=== PATIENT | female | born 1990 | race Caucasian/White ===

== ENCOUNTER 2016-04-05 16:28 | Emergency (ER) | payer OTHER ==
[~2016-04-05] VITALS: Ht 165.1 cm; Wt 64.0 kg
[~2016-04-05 16:28] MED LIST: ALBU8I INH; BENZ1CAP34 PO; ZITH250T PO
[2016-04-05 16:31] VITALS: BP 98/55; PULSE 66; RESP 16; TEMP 98.8; O2SAT 100
[2016-04-05] MEDS ORDERED: BC IMPLANT (18:31)
[2016-04-05 18:54] VITALS: BP 99/50; PULSE 72; RESP 16; O2SAT 98
--- NOTE | 2016-04-05 18:57 | PD ---
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 She has had some mild pelvic cramping. Denies any fevers, nausea, vomiting, or any other symptoms. She is sexually active but has not had any new partners. Modifying Factors: None Associated Signs & Symptoms: Brownish vaginal discharge, irregular vaginal bleeding Risk Factors: None PFSH Past Medical History Hx Anticoagulant Therapy: No Cancer: No Cardiovascular Problems: No Diminished Hearing: No Endocrine: No Gastrointestinal Disorders: No GERD: No Genitourinary: No Hiatal Hernia: No Immune Disorder: No Implanted Vascular Access Dvce: No Musculoskeletal: No Neurologic: No Psychiatric: No Reproductive: No Respiratory: No Immunizations Current: Yes Ulcer: No Influenza Vaccination: No ?: Unknown : 4 Para: 1 Miscarriage: 1 : 2 Past Surgical History AICD: No Arteriovenous Shunt: No Insulin Pump: No Joint Replacement: No Pacemaker: No Other Surgery: No Social History Alcohol Use: Yes Tobacco Use: Yes (half pack per day) Substance Use: Yes (marijuana) Allergies-Medications (Allergen,Severity, Reaction): Coded Allergies: No Known Allergies (Unverified , 04/05/16) Reported Meds & Prescriptions Reported Meds & Active Scripts Active Reported [Bc Implant] Review of Systems Except as stated in HPI: all other systems reviewed are Neg Physical Exam Narrative GENERAL: Well-nourished, well-developed young white female patient in no acute distress. SKIN: Warm and dry. HEAD: Normocephalic. EYES: No scleral icterus. No injection or drainage. NECK: Supple, trachea midline. CARDIOVASCULAR: Regular rate and rhythm without murmurs, gallops, or rubs. RESPIRATORY: Breath sounds equal bilaterally. No accessory muscle use. GASTROINTESTINAL: Abdomen soft, non-tender, nondistended. GENITOURINARY: Normal external genitalia without lesions or erythema. Vaginal vault brownish blood and small amount of cottage cheeselike whitish drainage. Cervical os was closed without drainage. No cervical motion tenderness. Uterus nontender and nonenlarged. Bilateral adnexa nontender without masses. MUSCULOSKELETAL: No cyanosis, or edema. BACK: Nontender without obvious deformity. No CVA tenderness. Data Data Last Documented VS Vital Signs Date Time Temp Pulse Resp B/P Pulse Ox O2 Delivery O2 Flow Rate FiO2 04/05/16 18:54 72 16 99/50 98 Room Air 04/05/16 16:31 98.8 Orders Gc And Chlamydia Pcr (04/05/16 18:31) Wet Prep Profile (04/05/16 18:31) Urinalysis - C+S If Indicated (04/05/16 18:31) Ed Urine Pregnancytest Poc (04/05/16 18:31) Labs Laboratory Tests Test 04/05/16 18:30 Clue Cells (Wet Prep) NONE SEEN Vaginal Trichomonas (Wet Prep) NONE SEEN Vaginal Yeast (Wet Prep) NONE SEEN MDM Medical Decision Making Medical Screen Exam Complete: Yes Emergency Medical Condition: Yes Medical Record Reviewed: Yes Differential Diagnosis Vaginal discharge, vaginal bleedingdysfunctional uterine bleeding versus breakthrough bleeding on control versus threatened AB versus ectopic versus vaginitis versus cervicitis Narrative Course Pelvic exam shows brownish discharge. She is not . Wet prep is negative. At this point, I would treat her empirically for vaginitis. UA is pending. Physician Communication Physician Communication Case is signed out to oncoming physician awaiting a UA. If negative, patient can be released. Diagnosis Primary Impression: Vaginal discharge Med/Other Pt SpecificInfo: Prescription(s) given Scripts Metronidazole (Flagyl)500 Mg Aoi134 Mg PO BID 7 Days Ref 0 Prov:Cisco Quintana MD 04/05/16 Disposition: 01 DISCHARGE HOME Condition: Stable Cisco Quintana MD Apr 05, 2016 18:57
[2016-04-05 19:00] LABS: BLOOD, URINE NEG (NEG); GLUCOSE,URINE NEG (NEG); KETONE, URINE NEG (NEG); NITRITE,URINE NEG (NEG)
[2016-04-05] MEDS ORDERED: METR-1 PO (19:07)
[2016-04-05 19:11] LABS: METHOD OF COLLECTION VOIDED; URINE COLOR YELLOW (YELLW/STRAW)
[2016-04-05 19:12] LABS: BACTERIA, URINE FEW /hpf; COMMENT (UR) CULT NOT INDICATED; CULTURE IF INDICATED CULT NOT INDICATED; MUCUS URINE MOD /lpf (OCC); SQUAMOUS EPITHELIAL CELL URINE >8 /hpf (0-5); WBC, URINE 0-2 /hpf (0-5)
[2016-04-06 03:49] LABS: CHLAMYDIA PCR NOT DETECTED (NOT DETECT); NEISSERIA PCR NOT DETECTED (NOT DETECT)
== END 2016-04-05 19:49 | disposition home or self-care (01) ==
LOC: PHED 16:28
DX: N89.8 Other specified noninflammatory disorders of vagina (principal); F17.210 Nicotine dependence, cigarettes, uncomplicated
CPT/HCPCS: 81001; 84703; 87210; 87491; 87591; 99283

== ENCOUNTER 2017-05-03 12:48 | Emergency (ER) | payer OTHER ==
[~2017-05-03] VITALS: Ht 165.1 cm; Wt 69.0 kg
[~2017-05-03 12:48] MED LIST changes: -ALBU8I INH; +BC IMPLANT; -BENZ1CAP34 PO; +METR-1 PO; -ZITH250T PO
[2017-05-03 12:52] VITALS: BP 109/56; PULSE 79; RESP 16; TEMP 98; O2SAT 98
[2017-05-03] MEDS ORDERED: AMOX875T PO (13:16)
[2017-05-03] MEDS ORDERED: PRED20 PO (13:16)
--- NOTE | 2017-05-03 13:20 | PD ---
HPI Chief Complaint: Cold / Flu Symptoms Time Seen by Provider: 13:08 Travel History International Travel<30 days: No Contact w/Intl Traveler<30days: No Traveled to known affect area: No History of Present Illness HPI 27-year-old female that presents to the ED for evaluation of headache and sinus congestion. Per patient she's had this for 4 days. Per patient she's been taking [id number] remedies with minimal relief. She has sore throat, congestion and cough as well as ear pain. Per patient he feels like a pressure. She states having some who sick at home. Denies any other medical issues. No chest pain or shortness of breath. Denies . No urinary bowel movement issues. Pain per patient is 8 out of 10 and does not get better with [id number] remedies. No other medical issues. PFSH Past Medical History Hx Anticoagulant Therapy: No Cancer: No Cardiovascular Problems: No Diminished Hearing: No Endocrine: No Gastrointestinal Disorders: No GERD: No Genitourinary: No Hiatal Hernia: No Immune Disorder: No Implanted Vascular Access Dvce: No Musculoskeletal: No Neurologic: No Psychiatric: No Reproductive: No Respiratory: No Immunizations Current: Yes Ulcer: No ?: Not : 4 Para: 1 Miscarriage: 1 : 2 Past Surgical History AICD: No Arteriovenous Shunt: No Insulin Pump: No Joint Replacement: No Pacemaker: No Other Surgery: No Social History Alcohol Use: Yes Tobacco Use: Yes (half pack per day) Substance Use: Yes (marijuana) Allergies-Medications (Allergen,Severity, Reaction): Coded Allergies: No Known Allergies (Unverified Adverse Reaction, Unknown, 05/03/17) Reported Meds & Prescriptions Reported Meds & Active Scripts Active No Active Prescriptions or Reported Medications Review of Systems Except as stated in HPI: all other systems reviewed are Neg Physical Exam Narrative GENERAL: Well-nourished, well-developed patient in no apparent distress. SKIN: Warm and dry. HEAD: Atraumatic. Normocephalic. EYES: Pupils equal and round reactive to light and accommodation. No scleral icterus. No injection or drainage. ENT: No nasal bleeding or discharge. Mucous membranes pink and moist. TMs are somewhat erythematous and bulging the left worse than right. No perforation. No mastoid tenderness. Ear canals are intact bilaterally. No lymphadenopathy. Nostril mucosa is red and moist with clear mucus noted. sinus tenderness noted to the maxillary and frontal sinuses to palpation. Tonsils are not enlarged or swollen. No ulvua Deviation. Tongue is midline. NECK: Trachea midline. No JVD. No meningeal signs noted CARDIOVASCULAR: Regular rate and rhythm. RESPIRATORY: No accessory muscle use. Clear to auscultation. Breath sounds equal bilaterally. GASTROINTESTINAL: Abdomen soft, non-tender, nondistended. Hepatic and splenic margins not palpable. MUSCULOSKELETAL: Extremities without clubbing, cyanosis, or edema. No obvious deformities. NEUROLOGICAL: Awake and alert. No obvious cranial nerve deficits. Motor grossly within normal limits. Five out of 5 muscle strength in the arms and legs. Normal speech. PSYCHIATRIC: Appropriate mood and affect; insight and judgment normal. Data Data Last Documented VS Vital Signs Date Time Temp Pulse Resp B/P (MAP) Pulse Ox O2 Delivery O2 Flow Rate FiO2 05/03/17 12:52 98.0 79 16 109/56 (73) 98 Orders Orders Ed Discharge Order (05/03/17 13:15) [facility] Medical Decision Making Medical Screen Exam Complete: Yes Emergency Medical Condition: Yes Medical Record Reviewed: Yes Differential Diagnosis Sinusitis versus otitis media versus otitis externa versus URI Narrative Course 27-year-old female that presents to the ED for evaluation of headache and congestion. Patient was properly examined and was found to have signs and symptoms consistent with otitis media and sinusitis. Patient has had symptoms for 4 days. This time and do recommend trial of antibiotics and steroids to help with congestion and pain as well as infection. Patient agrees. Patient was given prescription amoxicillin and prednisone. Told to take OTC meds as needed. Follow with PCP. See ED worsening symptoms. Diagnosis Primary Impression: Sinusitis, acute Qualified Codes: J01.10 - Acute frontal sinusitis, unspecified Additional Impression: Otitis media Qualified Codes: H66.002 - Acute suppurative otitis media without spontaneous rupture of ear drum, left ear Patient Instructions: General Instructions Additional Instructions: Motrin and Tylenol for pain and fever. You can use [id number] antihistamine as well as well as Mucinex as needed for runny nose and congestion. Cough drops for cough as needed. Drink plenty of fluids. Follow-up with PCP. See ED for worsening symptoms. Med/Other Pt SpecificInfo: Prescription(s) given Scripts Prednisone (Prednisone) 20 Mg Tab 20 MG PO BID for 5 Days, #10 TAB 0 Refills Prov: Noe Casarez MD 05/03/17 Amoxicillin (Amoxicillin) 875 Mg Tab 875 MG PO BID for Infection for 10 Days, #20 TAB 0 Refills Prov: Noe Casarez MD 05/03/17 Disposition: 01 DISCHARGE HOME Condition: Anatoliy Recinos May 03, 2017 13:20
== END 2017-05-03 13:32 | disposition home or self-care (01) ==
LOC: PHEFT 12:48
DX: J01.10 Acute frontal sinusitis, unspecified (principal); H66.002 Acute suppurative otitis media without spontaneous rupture of ear drum, left ear; R05 Cough; F17.200 Nicotine dependence, unspecified, uncomplicated
CPT/HCPCS: 99283

== ENCOUNTER 2017-05-09 07:43 | Emergency (ER) | payer OTHER ==
[~2017-05-09] VITALS: Ht 165.1 cm; Wt 69.0 kg
[~2017-05-09 07:43] MED LIST changes: +AMOX875T PO; -BC IMPLANT; -METR-1 PO; +PRED20 PO
[2017-05-09 07:49] VITALS: BP 105/58; PULSE 66; RESP 16; TEMP 98; O2SAT 99
[2017-05-09 09:30] VITALS: BP 104/57; PULSE 78; RESP 16; O2SAT 98
[2017-05-09 09:41] LABS: AUTOMATED NEUTROPHIL # 6.8 TH/MM3 (1.8-7.7); BASOPHIL # 0.1 TH/MM3 (0-0.2); BASOPHIL % 0.7 % (0.0-2.0); EOSINOPHIL # 0.1 TH/MM3 (0-0.4); EOSINOPHIL % 1.1 % (0.0-4.0); HEMATOCRIT 38.9 % (35.0-46.0); LYMPH % 24.2 % (9.0-44.0); LYMPHOCYTE # 2.5 TH/MM3 (1.0-4.8); MEAN CELL VOLUME 92.9 FL (80.0-100.0); MEAN CORPUSCULAR HEMOGLOBIN 31.2 PG (27.0-34.0); MEAN CORPUSCULAR HGB CONC 33.6 % (32.0-36.0); MEAN PLATELET VOLUME 7.6 FL (7.0-11.0); MONO % 8.9 % (0.0-8.0); MONOCYTE # 0.9 TH/MM3 (0-0.9); NEUT % 65.1 % (16.0-70.0); PLATELET COUNT 185 TH/MM3 (150-450); RED BLOOD COUNT 4.18 MIL/MM3 (4.00-5.30); RED CELL DISTRIBUTION WIDTH 12.1 % (11.6-17.2); WHITE BLOOD COUNT 10.4 TH/MM3 (4.0-11.0)
[2017-05-09 09:57] LABS: CALCIUM 8.2 MG/DL (8.5-10.1)
[2017-05-09 09:58] LABS: ALBUMIN 3.7 GM/DL (3.4-5.0); BICARBONATE 27.4 MEQ/L (21.0-32.0); GLUCOSE,RANDOM 84 MG/DL (74-106)
[2017-05-09 10:01] LABS: CHLORIDE 108 MEQ/L (98-107); CREATININE 0.78 MG/DL (0.50-1.00); GLOMERULAR FILTRATION RATE 88 ML/MIN (>89); SODIUM (NA) 142 MEQ/L (136-145)
[2017-05-09 10:03] LABS: TOTAL PROTEIN 6.9 GM/DL (6.4-8.2)
[2017-05-09 10:04] LABS: ALKALINE PHOSPHATASE 56 U/L (45-117)
[2017-05-09 10:06] LABS: ALT (GPT) 16 U/L (10-53)
[2017-05-09 10:11] LABS: AST (GOT) 8 U/L (15-37); BLOOD UREA NITROGEN 17 MG/DL (7-18)
[2017-05-09 10:18] LABS: TOTAL BILIRUBIN ADULT 0.3 MG/DL (0.2-1.0)
--- NOTE | 2017-05-09 10:38 | PD ---
HPI Chief Complaint: Bleeding Time Seen by Provider: 08:52 Travel History International Travel<30 days: No Contact w/Intl Traveler<30days: No Traveled to known affect area: No History of Present Illness HPI 27-year-old woman who presents to the emergency department complaining of abdominal pain and blood in her stools. She reports that she was treated for sinusitis on the 10th with amoxicillin. Since then she has had some abdominal discomfort with some nausea. She did not have a bowel movement since she started the antibiotics. Today she passed a large hard bowel movement followed by liquid stools associated with some bright red blood. She has had hemorrhoids in the past but this feels very different than when she has had that. She still is having some nausea. She had multiple episodes of stool since then. No history of abdominal surgery. No other complaints. History Past Medical History Medical History: Denies Significant Hx Influenza Vaccination: No LMP: JUST STARTED : 4 Para: 1 Social History Alcohol Use: Yes (OCC) Tobacco Use: Yes (half pack per day) Allergies-Medications (Allergen,Severity, Reaction): Coded Allergies: No Known Allergies (Unverified Adverse Reaction, Unknown, 05/09/17) Reported Meds & Prescriptions Reported Meds & Active Scripts Active Amoxicillin 875 Mg Tab 875 Mg PO BID 10 Days Review of Systems Except as stated in HPI: all other systems reviewed are Neg Physical Exam Narrative GENERAL: A 27-year-old woman, well-appearing, no acute distress per SKIN: Focused skin assessment warm/dry. HEAD: Atraumatic. Normocephalic. EYES: Pupils equal and round. No scleral icterus. No injection or drainage. ENT: No nasal bleeding or discharge. Mucous membranes pink and moist. NECK: Trachea midline. No JVD. CARDIOVASCULAR: Regular rate and rhythm. No murmur appreciated. RESPIRATORY: No accessory muscle use. Clear to auscultation. Breath sounds equal bilaterally. GASTROINTESTINAL: Abdomen flat and soft. Minimal lower abdominal tenderness. RECTAL: Clear mucus in the rectal vault. Guaiac positive. No bright red blood. Data Data Last Documented VS Vital Signs Date Time Temp Pulse Resp B/P (MAP) Pulse Ox O2 Delivery O2 Flow Rate FiO2 05/09/17 09:20 98 Room Air 05/09/17 07:49 98.0 66 16 105/58 (74) Orders Orders Complete Blood Count With Diff (05/09/17 09:11) Comprehensive Metabolic Panel (05/09/17 09:11) Iv Access Insert/Monitor (05/09/17 09:11) C Diff Toxin Pcr (05/09/17 09:11) Labs Laboratory Tests Test 05/09/17 09:37 White Blood Count 10.4 TH/MM3 Red Blood Count 4.18 MIL/MM3 Hemoglobin 13.0 GM/DL Hematocrit 38.9 % Mean Corpuscular Volume 92.9 FL Mean Corpuscular Hemoglobin 31.2 PG Mean Corpuscular Hemoglobin Concent 33.6 % Red Cell Distribution Width 12.1 % Platelet Count 185 TH/MM3 Mean Platelet Volume 7.6 FL Neutrophils (%) (Auto) 65.1 % Lymphocytes (%) (Auto) 24.2 % Monocytes (%) (Auto) 8.9 % Eosinophils (%) (Auto) 1.1 % Basophils (%) (Auto) 0.7 % Neutrophils # (Auto) 6.8 TH/MM3 Lymphocytes # (Auto) 2.5 TH/MM3 Monocytes # (Auto) 0.9 TH/MM3 Eosinophils # (Auto) 0.1 TH/MM3 Basophils # (Auto) 0.1 TH/MM3 CBC Comment DIFF FINAL Differential Comment Blood Urea Nitrogen 17 MG/DL Creatinine 0.78 MG/DL Random Glucose 84 MG/DL Total Protein 6.9 GM/DL Albumin 3.7 GM/DL Calcium Level 8.2 MG/DL Alkaline Phosphatase 56 U/L Aspartate Amino Transf (AST/SGOT) 8 U/L Alanine Aminotransferase (ALT/SGPT) 16 U/L Total Bilirubin 0.3 MG/DL Sodium Level 142 MEQ/L Potassium Level 3.5 MEQ/L Chloride Level 108 MEQ/L Carbon Dioxide Level 27.4 MEQ/L Anion Gap 7 MEQ/L Estimat Glomerular Filtration Rate 88 ML/MIN [facility] Medical Decision Making Medical Screen Exam Complete: Yes Emergency Medical Condition: Yes Interpretation(s) LABS: CBC is unremarkable. CMP is unremarkable. Differential Diagnosis Antibiotic associated diarrhea, irritation, hemorrhoids, C. difficile, colitis, other Narrative Course Medical decision making 19-year-old woman presents emergency department with constipation followed by some loose stools and bright red blood. Unable to give stool sample in the ED. No white count elevation fevers or other infectious symptoms to suggest C. difficile. Looks otherwise well. Recommend stopping antibiotics, close follow- up. Return for worsening symptoms. Additional Instructions: Stop your amoxicillin. Take Pepto-Bismol as needed for abdominal discomfort. Drink plenty of fluids stay well-hydrated. Follow-up with her primary doctor in 4 days. Return to the emergency department if worsening abdominal pain, high fevers, bloody diarrhea, or any other new or worsening symptoms. Disposition: 01 DISCHARGE HOME Condition: Stable Mark Reynaga MD May 09, 2017 10:38
--- NOTE | 2017-05-09 11:08 | PD ---
Data Data Last Documented VS Vital Signs Date Time Temp Pulse Resp B/P (MAP) Pulse Ox O2 Delivery O2 Flow Rate FiO2 05/09/17 09:30 78 16 104/57 (73) 98 Room Air 05/09/17 07:49 98.0 Orders Orders Complete Blood Count With Diff (05/09/17 09:11) Comprehensive Metabolic Panel (05/09/17 09:11) Iv Access Insert/Monitor (05/09/17 09:11) Ed Discharge Order (05/09/17 10:38) Labs Laboratory Tests Test 05/09/17 09:37 White Blood Count 10.4 TH/MM3 Red Blood Count 4.18 MIL/MM3 Hemoglobin 13.0 GM/DL Hematocrit 38.9 % Mean Corpuscular Volume 92.9 FL Mean Corpuscular Hemoglobin 31.2 PG Mean Corpuscular Hemoglobin Concent 33.6 % Red Cell Distribution Width 12.1 % Platelet Count 185 TH/MM3 Mean Platelet Volume 7.6 FL Neutrophils (%) (Auto) 65.1 % Lymphocytes (%) (Auto) 24.2 % Monocytes (%) (Auto) 8.9 % Eosinophils (%) (Auto) 1.1 % Basophils (%) (Auto) 0.7 % Neutrophils # (Auto) 6.8 TH/MM3 Lymphocytes # (Auto) 2.5 TH/MM3 Monocytes # (Auto) 0.9 TH/MM3 Eosinophils # (Auto) 0.1 TH/MM3 Basophils # (Auto) 0.1 TH/MM3 CBC Comment DIFF FINAL Differential Comment Blood Urea Nitrogen 17 MG/DL Creatinine 0.78 MG/DL Random Glucose 84 MG/DL Total Protein 6.9 GM/DL Albumin 3.7 GM/DL Calcium Level 8.2 MG/DL Alkaline Phosphatase 56 U/L Aspartate Amino Transf (AST/SGOT) 8 U/L Alanine Aminotransferase (ALT/SGPT) 16 U/L Total Bilirubin 0.3 MG/DL Sodium Level 142 MEQ/L Potassium Level 3.5 MEQ/L Chloride Level 108 MEQ/L Carbon Dioxide Level 27.4 MEQ/L Anion Gap 7 MEQ/L Estimat Glomerular Filtration Rate 88 ML/MIN [facility] Supervised Visit with IDANIA: No Diagnosis Primary Impression: Hematochezia Additional Instruction: Stop your amoxicillin. Take Pepto-Bismol as needed for abdominal discomfort. Drink plenty of fluids stay well-hydrated. Follow-up with her primary doctor in 4 days. Return to the emergency department if worsening abdominal pain, high fevers, bloody diarrhea, or any other new or worsening symptoms. Disposition: 01 DISCHARGE HOME Condition: Stable Mark Reynaga MD May 09, 2017 11:08
[2017-05-09 11:18] VITALS: BP 110/59
== END 2017-05-09 11:25 | disposition home or self-care (01) ==
LOC: PHED 07:43
DX: K92.1 Melena (principal); R10.30 Lower abdominal pain, unspecified; R11.0 Nausea; K59.00 Constipation, unspecified; R19.7 Diarrhea, unspecified; F17.200 Nicotine dependence, unspecified, uncomplicated
CPT/HCPCS: 80053; 85025; 99283